=== PATIENT | male | born 1960 | race African-American/Black ===

== ENCOUNTER 2023-07-20 15:40 | Emergency (ER) | payer BC, MEDICAID ==
[~2023-07-20] VITALS: Ht 172.7 cm; Wt 69.0 kg
[2023-07-20 15:44] VITALS: O2SAT 100
[2023-07-20] MEDS ORDERED: SODIUM CHLORIDE 0.9% 1,000 ML IV ONE ×2 (15:45→21:00)
[2023-07-20 16:09] LABS: BASOPHILS % 0.2 % (0.0-2.0); DIFFERENTIAL COMMENT 0; EOSINOPHILS % 3.6 % (0.0-5.0); HEMATOCRIT. 45.4 % (42.0-52.0); HEMOGLOBIN. 15.2 g/dL (14.0-18.0); LYMPHOCYTES % 8.4 % (20.0-50.0); MEAN CORPUSCULAR HEMOGLOBIN 36.6 pg (28.0-32.0); MEAN CORPUSCULAR HGB CONC 33.4 g/dL (31.0-37.0); MEAN CORPUSCULAR VOLUME 109.7 fL (80.0-94.0); MEAN PLATELET VOLUME 7.7 fl (7.4-10.4); NEUTROPHILS % 83.8 % (40.0-76.0); PLATELET 208 x1000/uL (130-400); RED BLOOD CELL COUNT 4.14 mill/uL (4.7-6.1); WHITE BLOOD COUNT 9.3 x1000/uL (4.5-11.0)
[2023-07-20 16:23] LABS: PROTHROMBIN TIME 10.9 sec (9.6-11.0)
[2023-07-20 20:22] LABS: LACTIC ACID 3.3 mmol/L (0.4-2.0)
[2023-07-20 20:42] LABS: ALANINE AMINOTRANSFERASE 29 IU/L (10-49); ALBUMIN 4.6 g/dL (3.2-4.8); ASPARTATE AMINOTRANSFERASE 21 IU/L (<34); BILIRUBIN TOTAL 1.3 mg/dL (0.1-1.0); CALCIUM 9.6 mg/dL (8.7-10.4); CARBON DIOXIDE 16 mEq/L (21-32); CHLORIDE 107 mEq/L (98-107); CREATININE 0.7 mg/dL (0.6-1.3); GLUCOSE 120 mg/dL (70-105); POTASSIUM 3.9 mEq/L (3.5-5.1); PROTEIN TOTAL 7.4 g/dL (6.0-8.3); SODIUM 142 mEq/L (136-145); UREA NITROGEN BLOOD 10 mg/dL (9-23)
[2023-07-20] MEDS ORDERED: FAMOTIDINE 20MG/2ML VIAL IV STA (20:47)
[2023-07-20] MEDS ORDERED: DICYCLOMINE 10 MG/5 ML ORAL SYR PO STA (20:47)
[2023-07-20] MEDS ORDERED: MAGNESIUM/ALUMINUM HYDROXIDE/SIMETHICONE 30ML UDC PO STA (20:47)
[2023-07-20] MEDS ORDERED: LOPE2CAP MT (20:49)
[2023-07-20] MEDS ORDERED: LACT1CAP63 MT (20:50)
[2023-07-20 20:51] LABS: TROPONIN I HIGH SENSITIVITY < 4 ng/L (3.0-53)
[2023-07-20] MEDS ORDERED: FAMOTIDINE 20MG/2ML VIAL IV NR (21:15)
[2023-07-20 21:30] VITALS: BP 148/96; PULSE 102; RESP 12; TEMP 98.1
== END 2023-07-20 23:06 | disposition home or self-care (01) ==
LOC: ER 15:40
DX: R19.7 Diarrhea, unspecified (principal)
CPT/HCPCS: 99285; 74176; 96374; 96361; 71045; 80053; 83605; 83690; 85025; 85610; 84484; 36415; 93005; J3490; J7030